=== PATIENT | male | born 1990 | race Two or more races ===

== ENCOUNTER 2025-04-18 07:10 | Emergency (ER) | payer MEDICAID, SELFPAY ==
[2025-04-18 07:12] VITALS: BP 176/99; PULSE 96; RESP 17; TEMP 36.7; O2SAT 97
[2025-04-18 07:18] VITALS: PULSE 99; RESP 98; O2SAT 98
--- NOTE | 2025-04-18 07:21 | EKG_ITS ---
[facility] Test Date: 2025-04-18 Pat Name: ANTHONY WHITE Department: Room: - Gender: Male Billing Spec: : 1990 Requested By: Solitario Curiel Order Number: [id number] Reading MD: Solitario Curiel Measurements Intervals Fifty Six Rate: 99 P: 69 MN: 145 QRS: 77 QRSD: 81 T: 50 QT: 343 QTc: 442 Interpretive Statements SINUS RHYTHM POSSIBLE LEFT ATRIAL ENLARGEMENT [-0.1mV P-WAVE IN V1/V2] LEFT VENTRICULAR HYPERTROPHY AND ST-T CHANGE [VOLTAGE CRITERIA PLUS ST/T ABNORMALITY] No previous ECG available for comparison /store/S0/[id number].pdf
[2025-04-18 07:24] VITALS: BMI 20.6
--- NOTE | 2025-04-18 07:25 | PD.EDNEURO ---
Neuro Symptoms Deficit-RME/HPI General Stated Complaint: CRAMPING Time Seen by Provider: 04/18/25 07:14 Source: patient Arrival date/time: 04/18/25 07:10 Mode of arrival: EMS Limitations: no limitations RME / HPI RME / HPI Narrative: Patient is a 35-year-old with a history of spasm in his hands and feet for 1 hour. Patient drinks heavily every day beer. Onset (ago): hour(s) Severity: moderate Quality: tingling and improving Relieving factors: none Exacerbating factors: none Context: sudden onset On Anticoagulants: No Associated symptoms: denies other symptoms Treatments Prior to Arrival: none Related Data Previous Rx's ?Medication ?Instructions ?Recorded ibuprofen 600 mg tablet 600 mg PO Q6H #30 tabs 02/20/24 Allergies Allergy/AdvReac Type Severity Reaction Status Date / Time No Known Allergies Allergy Verified 04/18/25 16:11 Review of Systems Review of Systems Systems Reviewed: All systems reviewed, normal except as documented Past Medical History Past Medical History NEUROLOGIC: Negative Neurological Disorders CARDIAC: Negative Cardiac Disorders RESPIRATORY: Negative Respiratory Disorders GASTROINTESTINAL: Negative Gastrointestinal Disorders GENITOURINARY: Negative Genitourinary Disorders or Renal Disease MUSCULOSKELETAL: Negative Musculoskeletal Disorders ENDOCRINE: Negative Endocrine Disorders Family History FAMILY HISTORY: Negative Family Cardiac Disorders Social History SMOKING STATUS: Light (< 1 pack/day) ED Exam General Limitations: Present no limitations General appearance: Present alert and in no apparent distress Head Head exam: Present atraumatic Eye Eye exam: Present normal appearance, PERRL and EOMI ENT ENT exam: Present normal exam, normal oropharynx and mucous membranes moist Neck Neck exam: Present normal inspection, full ROM and trachea midline Chest Chest inspection: Present normal inspection and symmetric chest wall rise Respiratory Respiratory exam: Present normal lung sounds bilaterally Cardiovascular Cardiovascular exam: Present regular rate, normal rhythm and normal heart sounds Abdominal Exam Abdominal exam: Present soft and normal bowel sounds Extremities Exam Extremities exam: Present normal inspection and full ROM Back Exam Back exam: Present normal inspection and full ROM Neurological Exam Neurological exam: Present alert, oriented X3 and CN II-XII intact Psychiatric Psychiatric exam: Present normal affect and normal mood Skin Skin exam: Present warm, dry, intact and normal color Course Quality Measures none Orders Category Date Time Status Die Drawing Checker NOW Care 04/18/25 07:21 Completed EKG (ED ONLY) *Do not use* NOW Care 04/18/25 07:21 Completed Insert IV NOW Care 04/18/25 07:21 Completed EKG (ED Only) Stat Exams 04/18/25 07:21 Draft CBC Stat Lab 04/18/25 07:46 Completed Comprehensive Metabolic Panel Stat Lab 04/18/25 07:46 Completed Magnesium Stat Lab 04/18/25 07:46 Completed Phosphorous Stat Lab 04/18/25 07:46 Completed Folic Acid Med 04/18/25 09:09 Discontinued 1 mg PO X1 ONE Sodium Chloride 0.9% 1000 ml [Ns] 1,000 ml Med 04/18/25 07:21 Discontinued IV 999 mls/hr Thiamine [Vitamin B-1] Med 04/18/25 09:09 Discontinued 100 mg PO X1 ONE Vital Signs Vital signs: Vital Signs Temperature 98.0 F 04/18/25 07:12 Pulse Rate 96 04/18/25 07:12 Respiratory Rate 17 04/18/25 07:12 Blood Pressure 176/99 H 04/18/25 07:12 Pulse Oximetry (%) 97 04/18/25 07:12 Oxygen Delivery Method Room Air 04/18/25 07:12 Pulse ox is 97% on room air which is adequate. Neuro Symptoms / Deficit MDM Narrative MDM Narrative:: Emily Hughes am scribing for and in the presence of Dr. Estrada. Patient data External records reviewed:: [facility] previous records Clinical information provided by:: patient Social determinants that could affect healthcare access:: alcohol use Patient has the following chronic illnesses:: ETOH ABUSE How is presenting disease/condition affected by chronic disease/condition?: exacerbated by Evaluation data The following diagnostics were reviewed and interpreted by me:: lab results and EKG tracing(s) Lab and/or radiology exams considered but not ordered:: none Interpretation Summary: Laboratories showed no significant abnormalities EKG on April 18 at 0731 hrs. shows sinus rhythm rate 99, possible left atrial enlargement, LVH with ST-T wave changes, MD interval is 145 ms QRS durations 81 ms. Medications / Prescriptions Medications or Prescriptions considered but not ordered:: [id number] multivitamins recommended Medication administrations:: Medication Administration History Discontinued Medications Folic Acid (Folic Acid 1 Mg Tablet) 1 mg PO X1 ONE Stop: 04/18/25 09:10 Last Admin: 04/18/25 09:24 Dose: 1 mg Documented By: BY Sodium Chloride (Ns) 1,000 mls @ 999 mls/hr IV .Q1H1M ONE Stop: 04/18/25 08:21 Last Infusion: 04/18/25 09:28 Dose: Infused Documented By: Admin: 04/18/25 07:30 Dose: 999 mls/hr Documented By: BY Thiamine HCl (Thiamine 100 Mg Tablet) 100 mg PO X1 ONE Stop: 04/18/25 09:10 Last Admin: 04/18/25 09:25 Dose: 100 mg Documented By: BY See above Consultations Consultation(s) initiated? (list below): No Diagnosis Neuro Differential Diagnosis: other (muscle spasms, electrolyte imbalance) Most likely diagnosis given after review of the tests above:: Patient most likely has muscle spasms. There were no electrolyte abnormalities. May be related to his alcohol drinking. Admission Indicated Admission indicated?: not indicated Admission Request Was there a request for admission?: No Disposition Plan Disposition Plan: Discharge Discharge Attestation Discharge Attestation: The patient and all family members were given an opportunity to ask questions and understood the discharge instructions. Discharge instructions specifically effects, indications for sooner follow up or return to the emergency department, and the expected course of current diagnosis. Patient condition: Stable Discharge Plan Plan Patient Disposition: HOME (Self Care) Prescriptions/Referrals Prescriptions/Med Rec: No Action ibuprofen 600 mg tablet 600 mg PO Q6H Qty: 30 0RF Referrals: No Primary/Family,Physician [Primary Care Provider] - In 1 week Problem List Clinical Impression: Muscle spasm, Alcohol abuse Patient/Caregiver Discharge Instructions Education Materials: Alcoholism: Getting Help, ED Muscle Spasm Additional Instructions: Follow-up with your doctor in 2 to 3 days. Take a multivitamin once daily which you can buy [id number]. Take Tylenol 500 mg 1 by mouth every 6 hours as needed for pain. Print Language: Arabic Stand Alone Forms: Frances Award Info., Work/School Release, Patient Portal Info Letter
[2025-04-18 07:26] VITALS: BP 167/95; PULSE 104; PULSE 108; RESP 18; TEMP 36.6; O2SAT 97
[2025-04-18] MEDS: SODIUM CHLORIDE 0.9% 1000 ML 1,000 ML 999 ML IV (07:30)
[2025-04-18 08:34] LABS: Basophils # (Auto) 0.0 Thou/mm3 (0.0-0.2); Basophils % (Auto) 0 % (0-2.5); Eosinophils # (Auto) 0.0 Thou/mm3 (0.0-0.5); Eosinophils % (Auto) 0 % (0-10); Hematocrit 43.5 % (41.0-53.0); Hemoglobin 14.9 g/dL (13.5-16.0); Immature Granulocytes Auto 0.02 Thou/mm3 (0.00-0.00); Lymphocytes # (Auto) 1.2 Thou/mm3 (1.0-4.8); Lymphocytes % (Auto) 12 % (10-50); Mean Corpuscular HGB Conc 34.3 g/dl (31.0-37.0); Mean Corpuscular Hemoglobin 30.7 pg (25.0-35.0); Mean Corpuscular Volume 90 fL (80-100); Monocytes # (Auto) 0.6 Thou/mm3 (0.0-0.8); Monocytes % (Auto) 6 % (0-12); Neutrophils # (Auto) 8.4 Thou/mm3 (1.8-7.7); Neutrophils % (Auto) 82 % (37-80); Nucleated Red Blood Cell # 0.00 Thou/mm3 (0.00-0.00); Nucleated Red Blood Cell % 0 /100 WBC (0); Platelet Count 278 Thou/mm3 (140-440); RDW Standard Deviation 43.2 fL (35.1-43.9); Red Blood Count 4.85 Miln/mm3 (4.50-5.90); White Blood Count 10.2 Thou/mm3 (3.8-10.6)
[2025-04-18 08:37] LABS: Alanine Aminotransferase 24 U/L (10-49); Albumin, Serum 4.7 gm/dL (3.5-5.0); Albumin/Globulin Ratio 1.6 (1.2-2.2); Alkaline Phosphatase 85 U/L (46-116); Anion Gap 12 (7-16); Aspartate Amino Transferase 32 U/L (0-34); BUN/Creatinine Ratio 9 Ratio (12-20); Bilirubin,Total 1.1 mg/dL (0.3-1.2); Blood Urea Nitrogen 9 mg/dL (9-23); Calcium 10.2 mg/dL (8.3-10.6); Calcium (Corrected) 10.2 mg/dL (8.5-10.1); Carbon Dioxide 27.2 mMol/L (20.0-31.0); Chloride 101 mMol/L (98-107); Creatinine (Component) 1.0 mg/dL (0.6-1.3); Estimated Creatinine Clearance 95.7 mL/min (>60); Globulin 2.9 gm/dL (2.3-3.5); Glucose 140 mg/dL (74-106); Magnesium 1.5 mg/dL (1.6-2.6); Osmolality,Calculated 280 (275-295); Phosphorous 2.1 mg/dL (2.4-5.1); Potassium 3.7 mMol/L (3.4-5.1); Sodium 140 mMol/L (136-145); Total Protein 7.6 gm/dL (5.7-8.2); eGFR > 60 See Note
[2025-04-18] MEDS: FOLIC ACID 1 MG TABLET PO (09:24)
[2025-04-18] MEDS: THIAMINE 100 MG TABLET PO (09:25)
[2025-04-18 09:26] VITALS: BP 171/98; PULSE 86; RESP 20; O2SAT 98
[2025-04-18 09:46] VITALS: PULSE 89; RESP 20; O2SAT 99
== END 2025-04-18 09:49 | disposition home or self-care (01) ==
PROVIDERS: Emergency Provider Family Medicine
DX: F10.10 Alcohol abuse, uncomplicated (principal); M62.838 Other muscle spasm
CPT/HCPCS: 36415; 80053; 83735; 84100; 85025; 93005; 96360; 96361; 99283; J7030; A9270

== ENCOUNTER 2025-04-18 16:03 | Emergency (ER) | payer MEDICAID, SELFPAY ==
[2025-04-18 16:07] VITALS: PULSE 117; RESP 18; O2SAT 98; BMI 21.6
[2025-04-18 16:12] VITALS: BP 160/81; PULSE 115; RESP 17; TEMP 37.8; O2SAT 99
--- NOTE | 2025-04-18 16:24 | PD.EDALCOH ---
ED Alcohol RME/HPI General Chief Complaint: Alcohol Stated Complaint: ALCOHOL WITHDRAWAL Time Seen by Provider: 04/18/25 16:16 Arrival date/time: 04/18/25 16:03 RME / HPI RME / HPI narrative: 35-year-old male patient came in for evaluation regarding anxiety-like symptoms. Patient symptoms started early today severity of symptoms moderate, symptoms described as jittery, tremors, palpitation and feeling very anxious. Patient admits of drinking 20 cans of [place] Light every day last drink was last night. Patient is asking for possible alcohol rehabilitation. He decided to stop drinking alcohol according to him. Denies any homicidal or suicidal ideation patient was seen here earlier today and was given fluids. However symptoms getting worse. Related Data Previous Rx's ?Medication ?Instructions ?Recorded ibuprofen 600 mg tablet 600 mg PO Q6H #30 tabs 02/20/24 chlordiazepoxide HCl 25 mg capsule 25 mg PO TID PRN alcohol 04/18/25 withdrawal #20 caps Allergies Allergy/AdvReac Type Severity Reaction Status Date / Time No Known Allergies Allergy Verified 04/18/25 16:11 Review of Systems Review of Systems Narrative Review of Systems: Review of system reviewed and within normal limits except mentioned in HPI ED Exam Narrative Physical exam: VITAL SIGNS: Reviewed. GENERAL APPEARANCE: Alert and interactive, follows commands, no acute distress, anxious HEAD AND FACE: Non-traumatic. ENT: PERRL, pink conjunctivitis, eyelid no trauma, Mucous membrane moist. NECK: Supple, nontender, no nuchal rigidity. CHEST: No tenderness, no crepitus, no paradoxical movement, no retractions. LUNGS: Clear, well ventilated, symmetric, no rales, no wheezing, no ronchi, no stridor, good breath sounds bilaterally. HEART: Tachycardia, no murmur, no gallops. ABDOMEN: Soft, positive bowel sounds, nondistended, no guarding, nontender, no rebound, no masses, RECTAL: Deferred. GENITAL: Deferred. NEUROLOGICAL: Gross motor function intact sensory function intact, Appropriate for age. MUSCULOSKELETAL: low back nontender, full range of motion. EXTREMITIES: Nontender, full range of motion. SKIN: Color pink, dry, no rash, no lacerations, no abrasions, no contusions. LYMPHATICS: Deferred. Course Quality Measures none Orders Category Date Time Status Alcohol, Blood Medical Stat Lab 04/18/25 16:31 Completed CBC Stat Lab 04/18/25 16:31 Completed CMP [Comprehensive Metabolic Panel] Stat Lab 04/18/25 16:31 Completed Drug Screen,Urine Stat Lab 04/18/25 16:40 Completed Urinalysis Stat Lab 04/18/25 16:40 Completed PHENobarbital Inj Med 04/18/25 16:45 Discontinued 130 mg IV X1 ONE Ringers Lactated 1000 ml [Lactated Ringers] 1,000 ml Med 04/18/25 16:37 Discontinued IV 999 mls/hr chlordiazePOXIDE HCl [Librium] Med 04/18/25 16:37 Discontinued 25 mg PO X1 ONE Referral Financial Planning Adviser NOW SS 04/18/25 17:32 Active Vital Signs Vital signs: Vital Signs Temperature 100.1 F 04/18/25 16:12 Pulse Rate 115 H 04/18/25 16:12 Respiratory Rate 17 04/18/25 16:12 Blood Pressure 160/81 H 04/18/25 16:12 Pulse Oximetry (%) 99 04/18/25 16:12 Oxygen Delivery Method Room Air 04/18/25 16:12 Discharge Plan Plan Patient Disposition: HOME (Self Care) Discharge Disposition comment: Stable Prescriptions/Referrals Prescriptions/Med Rec: New chlordiazepoxide HCl 25 mg capsule 25 mg PO TID PRN (Reason: alcohol withdrawal) Qty: 20 0RF No Action ibuprofen 600 mg tablet 600 mg PO Q6H Qty: 30 0RF Referrals: No Primary/Family,Physician [Primary Care Provider] - In 1 week Problem List Clinical Impression: Alcohol abuse Patient/Caregiver Discharge Instructions Discharge Activity: activity as tolerated Education Materials: ED Alcohol Abuse Additional Instructions: Thank you for the opportunity for serving you today. You are stable for discharged . You are advised to: Follow-up with your PCP in 1 to 2 days Return to ED for worsening of symptoms Increase oral fluids Take medication as prescribed Please stop abusing alcohol take your Librium every 6 hours as needed for anxiety, alcohol withdrawal symptoms. Print Language: Georgian Stand Alone Forms: Frances Award Info., Patient Portal Info Letter PA/SAND PLANT ATTENDANT Supervising Physician PA/SAND PLANT ATTENDANT Supervising Physician: MD Sakina Alcohol MDM Narrative MDM Narrative: 35-year-old male patient came in for evaluation regarding anxiety-like symptoms. Patient symptoms started early today severity of symptoms moderate, symptoms described as jittery, tremors, palpitation and feeling very anxious. Patient admits of drinking 20 cans of [place] every day last drink was last night. Patient is asking for possible alcohol rehabilitation. He decided to stop drinking alcohol according to him. Denies any homicidal or suicidal ideation patient was seen here earlier today and was given fluids. However symptoms getting worse. Laboratory workup came back unremarkable alcohol level was less than 3. LFTs are normal urinalysis no UTI. Patient received phenobarbital, Librium. On reevaluation patient CIWA score was noted to be 4 patient verbalized ready to go home. He told me that he will stop drinking alcohol. Patient data External records reviewed:: None Clinical information provided by:: patient and family Social determinants that could affect healthcare access:: alcohol use Patient has the following chronic illnesses:: None How is presenting disease/condition affected by chronic disease/condition?: exacerbated by Evaluation data The following diagnostics were reviewed and interpreted by me:: lab results and radiology exam(s) Lab and/or radiology exams considered but not ordered:: None Interpretation Summary: See results MDM Medications / Prescriptions Medications or Prescriptions considered but not ordered:: None Medication administrations:: Medication Administration History Discontinued Medications Chlordiazepoxide HCl (Chlordiazepoxide Hcl 25 Mg Capsule) 25 mg PO X1 ONE Stop: 04/18/25 16:38 Last Admin: 04/18/25 17:20 Dose: 25 mg Documented By: BY Lactated Ringer's (Lactated Ringers) 1,000 mls @ 999 mls/hr IV .Q1H1M ONE Stop: 04/18/25 17:37 Last Infusion: 04/18/25 18:54 Dose: Infused Documented By: Admin: 04/18/25 17:18 Dose: 999 mls/hr Documented By: BY Phenobarbital Sodium (Phenobarbital Inj 130 Mg/1 Ml Vial) 130 mg IV X1 ONE; Protocol Stop: 04/18/25 16:46 Last Admin: 04/18/25 17:20 Dose: 130 mg Documented By: BY Phenobarbital, IV fluids, Librium Consultations Consultation(s) initiated? (list below): No Diagnosis Differential diagnosis alcohol: alcohol intoxication and alcohol withdrawal syndrome Most likely diagnosis given after review of the tests above:: Alcohol abuse Admission Indicated Admission indicated?: not indicated Explain why admission is indicated or not indicated:: Stable Admission Request Was there a request for admission?: No Disposition Plan Disposition Plan: Discharge Discharge Attestation Discharge Attestation: The patient and all family members were given an opportunity to ask questions and understood the discharge instructions. Discharge instructions specifically effects, indications for sooner follow up or return to the emergency department, and the expected course of current diagnosis. Patient condition: Stable
[2025-04-18 16:41] LABS: Basophils # (Auto) 0.0 Thou/mm3 (0.0-0.2); Basophils % (Auto) 0 % (0-2.5); Eosinophils # (Auto) 0.0 Thou/mm3 (0.0-0.5); Eosinophils % (Auto) 0 % (0-10); Hematocrit 40.7 % (41.0-53.0); Hemoglobin 14.5 g/dL (13.5-16.0); Immature Granulocytes Auto 0.01 Thou/mm3 (0.00-0.00); Lymphocytes # (Auto) 2.7 Thou/mm3 (1.0-4.8); Lymphocytes % (Auto) 31 % (10-50); Mean Corpuscular HGB Conc 35.6 g/dl (31.0-37.0); Mean Corpuscular Hemoglobin 31.7 pg (25.0-35.0); Mean Corpuscular Volume 89 fL (80-100); Monocytes # (Auto) 0.6 Thou/mm3 (0.0-0.8); Monocytes % (Auto) 6 % (0-12); Neutrophils # (Auto) 5.4 Thou/mm3 (1.8-7.7); Neutrophils % (Auto) 62 % (37-80); Nucleated Red Blood Cell # 0.00 Thou/mm3 (0.00-0.00); Nucleated Red Blood Cell % 0 /100 WBC (0); Platelet Count 252 Thou/mm3 (140-440); RDW Standard Deviation 42.8 fL (35.1-43.9); Red Blood Count 4.58 Miln/mm3 (4.50-5.90); White Blood Count 8.8 Thou/mm3 (3.8-10.6)
[2025-04-18 16:46] LABS: Collection Type, Urine Clean Catch; RBC,Urine 0 /hpf (0-3); Squamous Epithelial Cell,Urine 0 /hpf (0-5); WBC,Urine 0 /hpf (0-5)
[2025-04-18 17:05] LABS: Bacteria,Urine Rare; Bilirubin,Urine Negative (Negative); Blood,Urine Negative (Negative); Clarity,Urine Clear (Clear/Hazy); Color,Urine Lt-Yellow (Lt Yel-Yel); Glucose, Urine Negative (Negative); Ketones,Urine 1+ (Negative); Leukocyte Esterase,Urine Negative (Negative); Nitrite,Urine Negative (Negative); PH,Urine 8.0 (5.0-7.0); Protein,Urine Trace (Neg - Trace); Specific Gravity,Urine 1.019 (1.001-1.035); Urobilinogen,Urine Negative mg/dL (0.0-1.0)
[2025-04-18] MEDS: RINGERS LACTATED 1000 ML 1,000 ML 999 ML IV (17:18)
[2025-04-18] MEDS: PHENobarbital INJ 130 MG/1 ML VIAL IV (17:20)
[2025-04-18 17:25] VITALS: BP 167/98; PULSE 92; RESP 20; O2SAT 100
[2025-04-18 17:33] LABS: Alanine Aminotransferase 23 U/L (10-49); Albumin, Serum 4.6 gm/dL (3.5-5.0); Albumin/Globulin Ratio 1.7 (1.2-2.2); Alcohol, Blood Medical < 3.0 mg/dL (0-10.0); Alkaline Phosphatase 89 U/L (46-116); Anion Gap 11 (7-16); Aspartate Amino Transferase 31 U/L (0-34); BUN/Creatinine Ratio 8 Ratio (12-20); Bilirubin,Total 1.3 mg/dL (0.3-1.2); Blood Urea Nitrogen 9 mg/dL (9-23); Calcium 10.2 mg/dL (8.3-10.6); Calcium (Corrected) 10.2 mg/dL (8.5-10.1); Carbon Dioxide 26.2 mMol/L (20.0-31.0); Chloride 104 mMol/L (98-107); Creatinine (Component) 1.1 mg/dL (0.6-1.3); Estimated Creatinine Clearance 87.0 mL/min (>60); Globulin 2.7 gm/dL (2.3-3.5); Glucose 125 mg/dL (74-106); Osmolality,Calculated 280 (275-295); Potassium 3.4 mMol/L (3.4-5.1); Sodium 141 mMol/L (136-145); Total Protein 7.3 gm/dL (5.7-8.2); eGFR > 60 See Note
[2025-04-18 17:33] LABS: Amphetamine/Methamp Scrn,U Positive (Negative); Barbiturate Screen,Urine Negative (Negative); Benzodiazepines Screen,Urine Negative (Negative); Benzoylecgonine Screen, Ur Negative (Negative); Fentanyl Screen,Urine Negative (Negative); Opiate Screen,Urine Negative (Negative); THC Screen,Urine Negative (Negative)
[2025-04-18 18:24] VITALS: BP 149/92; PULSE 72; RESP 16; TEMP 37.4; O2SAT 99
[2025-04-18 19:16] VITALS: BP 169/101; PULSE 91; RESP 15; O2SAT 100
== END 2025-04-18 19:46 | disposition home or self-care (01) ==
PROVIDERS: Nurse Practitioner Family; Emergency Provider Family Medicine
DX: F10.10 Alcohol abuse, uncomplicated (principal)
CPT/HCPCS: 36415; 80053; 80307; 80320; 81001; 85025; 96360; 96361; 99283; J2560; J7120; A9270; G0480